=== PATIENT | male | born 1985 | race Caucasian/White ===

== ENCOUNTER 2020-01-28 14:08 | Outpatient (CLI) | payer OTHER, SELFPAY ==
--- NOTE | 2020-01-31 13:25 | WPDPFTINT ---
PFT Interpretation PFT Interpretation: This PFT met all criteria for ATS standards and reproducibility FEV/FVC pre bronchodilator 71%, post bronchodilator 77% FEV1 110% FVC 110% FEV1 improved by 8% and 360 ml post bronchodilator FEF 25-75% was 72% of predicted TLC 121% of predicted RV 120% RV/TLC 27% DLCO 87% when adjusted for alveolar volume but not adjusted for hemoglobin Flow volume loops showed some expiratory coving Impression: Possible mild airflow obstruction in small airways. This may correlate with Asthma or Reactive Airway Disease. Methacholine challange test would be warranted to further clarify. Clinical correlation is advised.
== END 2020-01-28 14:09 | disposition home or self-care (01) ==
LOC: ANHPFT 14:13
PROVIDERS: PCP Internal Medicine Critical Care Medicine; Visit Provider Internal Medicine Critical Care Medicine
DX: R05 Cough (principal); R94.2 Abnormal results of pulmonary function studies
CPT/HCPCS: 94060; 94726; 94729

== ENCOUNTER 2020-05-17 12:41 | Outpatient (CLI) | payer OTHER, SELFPAY ==
--- NOTE | 2020-05-22 12:05 | WPDPFTINT ---
PFT Interpretation PFT Interpretation: Methacholine Challenge Study: FEV started at 4.36 liters or 102% and decline 3.36 liters or 79% at level 4 of methacholine challenge testing This is positive Methacholine Challenge Test. Clinical correlation is advised.
== END 2020-05-17 12:42 | disposition home or self-care (01) ==
PROVIDERS: Visit Provider Internal Medicine Critical Care Medicine
DX: R05 Cough (principal); R94.2 Abnormal results of pulmonary function studies
CPT/HCPCS: 94070; J7674